=== PATIENT | female | born 1970 | race Caucasian/White ===

== ENCOUNTER 2017-01-20 07:48 | Emergency (ER) | payer BC ==
[~2017-01-20] VITALS: Ht 170.2 cm; Wt 72.6 kg
[2017-01-20 07:48] VITALS: BP 113/77
== END 2017-01-20 08:21 | disposition home or self-care (01) ==
LOC: ER 07:58
DX: H10.13 Acute atopic conjunctivitis, bilateral (principal); F32.9 Major depressive disorder, single episode, unspecified; Z88.0 Allergy status to penicillin
CPT/HCPCS: 99282; A4606; Z7610

== ENCOUNTER 2021-07-31 15:05 | Emergency (ER) | payer BC ==
[~2021-07-31] VITALS: Ht 165.1 cm; Wt 68.0 kg
--- NOTE | 2021-07-31 16:00 | NUR ---
[employer] here
[2021-07-31 16:39] VITALS: BP 110/60
--- NOTE | 2021-07-31 16:39 | NUR ---
Patient discharged to home in stable condition. Written and verbal after care instructions given. Patient verbalizes understanding of instruction.
== END 2021-07-31 16:40 | disposition home or self-care (01) ==
LOC: ER 15:24
DX: M79.661 Pain in right lower leg (principal); F32.A Depression, unspecified; Z88.0 Allergy status to penicillin
CPT/HCPCS: 93971-TC